=== PATIENT | female | born 1960 | race Caucasian/White ===

== ENCOUNTER 2021-04-12 19:20 | Emergency (ER) | payer OTHER, SELFPAY ==
[2021-04-12 19:30] VITALS: PULSE 62; RESP 20; TEMP 36.3; O2SAT 100; BMI 32.5
--- NOTE | 2021-04-12 19:37 | DI.RAD.S_ITS ---
PROCEDURE: XR FOREARM LT 2V INDICATIONS: fall, severe pain TECHNIQUE: 2 views of the forearm were acquired. COMPARISON: None. FINDINGS: Bones: Impacted, markedly comminuted distal radius fracture involving the articular surface. Comminuted nondisplaced scaphoid fracture. The scaphoid fracture involves the scaphoid waist as well as the distal articular surface. Ulnar styloid avulsion. Distal radioulnar joint dislocation. Soft tissues: No suspicious soft tissue calcifications or masses. IMPRESSION: 1. Markedly comminuted, impacted distal radius fracture extending to the articular surface. 2. Radioulnar joint dislocation. 3. Ulnar styloid avulsion. 4. Comminuted nondisplaced scaphoid fracture. Dictated by: Travis Pollock M.D. on 04/12/2021 at 20:08 Approved by: Travis Pollock M.D. on 04/12/2021 at 20:10
[2021-04-12] MEDS: KETOROLAC 30 MG/ML VIAL 15 MG IM (19:59)
[2021-04-12] MEDS: LIDO 1%/SOD BICARB 8.4% (10ML) 10 ML SYRINGE INJ (19:59)
[2021-04-12] MEDS: OXYCODONE/ACETAMINOPHEN 5/325 TABLET 1 TAB PO (19:59)
[2021-04-12 20:43] LABS: COVID19 -Nasal RAPID Negative (Negative)
[2021-04-12 21:52] VITALS: O2SAT 100
--- NOTE | 2021-04-12 21:52 | ED_ITS ---
HPI - Extremity Injury (Upper) General Chief Complaint: Extremity Injury, Upper Stated Complaint: LT WRIST INJURY Time Seen by Provider: 04/12/21 19:41 Source: patient Mode of arrival: Wheelchair Limitations: no limitations History of Present Illness HPI narrative: 60-year-old woman with history of hypothyroidism suffered a mechanical fall and landed on her outstretched left wrist on a concrete surface with obvious fracture to the wrist and significant pain. She describes no other trauma. Related Data Home Medications Medication Instructions Recorded Confirmed levothyroxine 25 mcg tablet 25 mcg PO QAM #30 tab 04/10/16 Previous Rx's Medication Instructions Recorded oxycodone-acetaminophen 5 mg-325 1 tab PO Q6H PRN #14 tab 04/12/21 mg tablet Allergies Allergy/AdvReac Type Severity Reaction Status Date / Time INGREDIENT: NKDA - NO KNOWN Allergy Unknown Uncoded 10/27/17 11:55 DRUG ALLERGIES Review of Systems Review of Systems Narrative: Pertinent positive and negative findings as per HPI Remainder of review of systems is otherwise unremarkable for Constitutional: Fevers, chills, weakness ENT: No sore throat, neck pain, ear pain CV: Chest pain, palpitations, Respiratory: Cough, wheeze, dyspnea GI: Nausea, vomiting, diarrhea, : Dysuria, hematuria, Patient History Medical History Acquired hypothyroidism (10/13/16) Social History Smoking Status: Never smoker Smoking Status: Never smoker alcohol intake frequency: 0-2 drinks per day Substance Use Type: does not use Exam Narrative Exam Narrative: General: Alert appropriate in no acute distress Respiratory: Able to speak in full sentences, no obvious respiratory distress Skin: No obvious rashes, warm and dry Neurologic: Grossly intact no obvious asymmetries or abnormalities Psych: appropriate insight and affect, cooperative Extremity: Significant deformity to the left wrist with ecchymosis to developing on the palmar surface of the hand. She is neurovascularly intact. There is no elbow or shoulder pain or dysfunction. Initial Vital Signs Initial Vital Signs: Vital Signs Temperature 97.3 F L 04/12/21 19:30 Pulse Rate 62 04/12/21 19:30 Respiratory Rate 20 04/12/21 19:30 Pulse Oximetry 100 04/12/21 19:30 Procedures Orthopedic Fracture Reduction Left wrist: Time of procedure: 22:41 Side: left Fracture Reduction Location: radius and ulna Analgesia: hematoma block Technique: direct manipulation and traction/counter-traction Post Reduction X-rays Demonstrate: acceptable reduction Post-reduction neuro exam: intact Post-reduction vascular exam: intact Splint Applied: Yes Patient Tolerated Procedure: Well Orthopedic Splinting/Casting Left wrist: Time of procedure: 22:43 Side: left Upper Extremity Injury Location: wrist Upper Extremity Immobilizer: sling/shoulder immobilizer and sugar tong splint Post splinting neuro exam: intact Post splinting vascular exam: intact Placed by: Provider Course Orders Ordered: ED Orders 04/12/21 19:37 XR forearm LT 2V Stat 04/12/21 20:15 COVID19 -Nasal swab/Pre-Proc Stat 04/12/21 22:44 CT UE LT wo con Stat Discontinued Medications Ketorolac Tromethamine (Ketorolac 30 Mg/Ml Vial) 15 mg IM NOW ONE Stop: 04/12/21 19:53 Last Admin: 04/12/21 19:59 Dose: 15 mg Documented by: JEFFERY Lidocaine/Sodium Bicarbonate (Lido 1%/Sod Bicarb 8.4% (10ml) 10 Ml Syringe) 10 ml INJ NOW ONE Stop: 04/12/21 19:54 Last Admin: 04/12/21 19:59 Dose: 10 ml Documented by: JEFFERY Oxycodone/Acetaminophen (Oxycodone/Acetaminophen 5/325 Tablet) 1 tab PO NOW ONE Stop: 04/12/21 19:43 Last Admin: 04/12/21 19:59 Dose: 1 tab Documented by: JEFFERY Oxycodone/Acetaminophen (Oxycodone/Apap 5/325 Prepack) 1 bottle MISC SEEINSTR ONE Stop: 04/12/21 22:45 Last Admin: 04/12/21 23:02 Dose: 1 bottle Documented by: RAS Vital Signs Vital signs: Vital Signs - 8 hr 04/12/21 19:30 04/12/21 21:52 04/12/21 21:53 Temperature 97.3 F L Pulse Rate 62 71 Respiratory Rate 20 Blood Pressure 161/88 H Pulse Oximetry 100 100 100 04/12/21 21:58 04/12/21 23:24 Temperature Pulse Rate 66 71 Respiratory Rate 20 Blood Pressure 161/88 H 135/76 Pulse Oximetry 99 [facility] - Extremity Injury (Upper) Lab Data Labs: Lab Results 04/12/21 Range/Units 20:15 SARS-CoV-2 (PCR) Negative (Negative) Imaging Data forarm xray: Radiologist's Impression: FINDINGS: Bones: Impacted, markedly comminuted distal radius fracture involving the articular surface. Comminuted nondisplaced scaphoid fracture. The scaphoid fracture involves the scaphoid waist as well as the distal articular surface. Ulnar styloid avulsion. Distal radioulnar joint dislocation. Soft tissues: No suspicious soft tissue calcifications or masses. IMPRESSION: 1. Markedly comminuted, impacted distal radius fracture extending to the articular surface. 2. Radioulnar joint dislocation. 3. Ulnar styloid avulsion. 4. Comminuted nondisplaced scaphoid fracture. Dictated by: Travis Pollock M.D. on 04/12/2021 at 20:08 [facility] Narrative Medical decision making narrative: Fall on out stretched hand , Reviewed with Dr Grullon. Hematoma block is performed and the wrist is somewhat straightened while the splint is placed. CT scan of the wrist is obtain post splinting for preoperative planning. Pain is controlled at this point and patient is discharged home with instructions to follow-up with Dr. Grullon for definitive treatment of her wrist fracture. Discharge Plan Departure Patient Disposition: Home Clinical Impression: Fracture of wrist Qualifiers: Encounter type: initial encounter Fracture type: closed Laterality: left Qualified Code(s): S62.102A - Fracture of unspecified carpal bone, left wrist, initial encounter for closed fracture Fracture of scaphoid Qualifiers: Encounter type: initial encounter Scaphoid bone location: middle third Fracture type: closed Fracture alignment: nondisplaced Laterality: left Qualified Code(s): S62.025A - Nondisplaced fracture of middle third of navicular [scaphoid] bone of left wrist, initial encounter for closed fracture Instructions: DI for Wrist Fracture Activity Restrictions/Additional Instructions: Thank you for coming in today You have a significant wrist fracture. This is going to need surgery. In the emergency room we splinted it to try to minimize movement. You will need to follow-up with [facility] for definitive treatment. Using 400 mg of ibuprofen (2 [id number] pills) and 1 Tylenol every 6 hours can be very helpful in controlling pain. For severe pain using to ibuprofen and 1 Percocet will be helpful. Percocet will make you constipated as it does have narcotic in it. Make sure that your using plenty of fiber or stool softeners to prevent constipation. On Wednesday please call [facility] at [phone] to schedule a follow-up appointment with Dr. Avril Grullon If you feel that you are getting worse, pain is not able to be controlled or you have new findings, please return to the ER I hope you heal quickly Prescriptions: New oxycodone-acetaminophen 5-325 mg tablet 1 tab PO Q6H PRN (Reason: pain) Qty: 14 RF: 0 No Action levothyroxine 25 MCG tablet 25 mcg PO QAM Qty: 30 RF: 0 Referrals: Mary Hicks DO [Primary Care Provider] -
[2021-04-12 21:53] VITALS: BP 161/88; PULSE 71; O2SAT 100
[2021-04-12 21:58] VITALS: BP 161/88; PULSE 66; O2SAT 99
--- NOTE | 2021-04-12 22:44 | DI.CT.S_ITS ---
PROCEDURE: CT UE LT WO CON INDICATIONS: pre op complex wrist fracture TECHNIQUE: Noncontrast 1 mm axial sections acquired through the carpal bones, with coronal and sagittal reformats. COMPARISON: [facility], CR, XR FOREARM LT 2V, 04/12/2021, 19:45. FINDINGS: Image quality: Excellent. Bones: Comminuted impacted intra-articular fracture of the distal radius. There is also a nondisplaced fracture of the distal pole and mid scaphoid. Chronic appearing 2 mm loose body or dystrophic calcification seen adjacent to the ulnar styloid. Soft tissues: Soft tissue gas seen at radial aspect of the wrist presumably related to laceration although recommend clinical correlation. IMPRESSION: Comminuted impacted intra-articular fracture of the distal radius. Nondisplaced scaphoid fracture Dictated by: Dany To M.D. on 04/12/2021 at 23:23 Approved by: Dany To M.D. on 04/12/2021 at 23:27
[2021-04-12] MEDS: OXYCODONE/APAP 5/325 PREPACK 1 BOTTLE MISC (23:02)
[2021-04-12 23:24] VITALS: BP 135/76; PULSE 71; RESP 20
== END 2021-04-12 23:30 | disposition home or self-care (01) ==
PROVIDERS: Emergency Provider Emergency Medicine; PCP Family Medicine
DX: S62.102A Fracture of unspecified carpal bone, left wrist, initial encounter for closed fracture (principal); S62.025A Nondisplaced fracture of middle third of navicular [scaphoid] bone of left wrist, initial encounter for closed fracture; W19.XXXA Unspecified fall, initial encounter; Z20.822 Contact with and (suspected) exposure to COVID-19
CPT/HCPCS: 25605; 64450; 73090; 73200; 87635; 99284; C9803; J1885